=== PATIENT | female | born 2000 | race Caucasian/White ===

== ENCOUNTER 2022-03-18 15:31 | Outpatient (REF) | payer BC, SELFPAY ==
--- NOTE | ~2022-03-18 | US_ITS ---
EXAMINATION: US RETROPERITONEAL LIMITED (RENAL ONLY) CLINICAL INFORMATION: Abdominal pain.. COMPARISON: None TECHNIQUE: Multiple 2-D grayscale and color Doppler ultrasound images of the kidneys were obtained. FINDINGS: RIGHT KIDNEY: 11.8 x 6.0 x 5.5 cm (SAG x AP x TRV). No nephrolithiasis or hydronephrosis. Color Doppler showed no abnormal vascular flow. LEFT KIDNEY: 10.5 x 5.8 x 4.7 cm (SAG x AP x TRV). Small anechoic cyst in the upper pole measures 1.2 cm. An adjacent anechoic cyst measures 1.4 cm. No nephrolithiasis or hydronephrosis. Color Doppler showed no abnormal vascular flow. US/US renal BI IMPRESSION: Small left upper pole renal cysts demonstrate benign features without other significant abnormality.
--- NOTE | ~2022-03-18 | US_ITS ---
EXAMINATION: US PELVIS CLINICAL INFORMATION: Pelvic and perineal pain COMPARISON: None TECHNIQUE: Ultrasound of the pelvis is performed using both transabdominal and transvaginal transducers along with Doppler. Transvaginal imaging is performed due to inadequate visualization transabdominally. FINDINGS: Uterus: The uterus is anteverted, anteflexed and measures 9.6 x 2.9 x 4.2 cm The double wall endometrial thickness is 0.5 cm. There is intrauterine contraceptive device in correct position. The uterus is smooth in contour and has normal myometrial echogenicity. No visible fibroid. Adnexa: Both ovaries are visualized. There is normal color flow to the adnexa. There is no ovarian torsion. There is minimal fluid seen in the left adnexa. Right ovary measures 7.1 x 6.3 x 5.3 cm. There is a complex cyst with echogenic within measuring 6.3 x 4.9 x 4.4 cm. There is normal arterial and venous flow seen. Left ovary the left ovary is prominent with 8 echogenic corpus luteal cyst measuring 1.8 x 2.0 1.9 cm. There is a simple cyst measuring 2.9 x 3.1 x 3.2 cm. On Doppler exam there is whirl pool flow on Doppler exam suspicious of mild ovarian rotation but no torsion. US/US pelvic and transvaginal IMPRESSION: IUD in correct position within the endometrial canal. The uterus otherwise unremarkable. Complex cyst right ovary. Simple and corpus luteal cyst left ovary. There is mild whirlpool appearance on color Doppler of left adnexa likely twisting off ovary but no torsion. There is Minimal free fluid in the left adnexa.
[2022-03-18 17:00] LABS: Appearance Urine Clear; Color Urine Yellow; Glucose Urine UA Negative (Negative); Leukocyte Esterase Urine Negative (Negative); Nitrite Urine Negative (Negative); PH 6.5 (5.0-9.0); Specific Gravity - Urine <= 1.005 (1.005-1.025); Urine Blood Negative (Negative); Urine Ketones Negative (Negative); Urine Protein Negative (Neg-Trace)
== END 2022-03-18 15:32 | disposition home or self-care (01) ==
LOC: HO.US 15:31
PROVIDERS: PCP Internal Medicine; Visit Provider Nurse Practitioner Family
DX: R10.9 Unspecified abdominal pain (principal); R10.2 Pelvic and perineal pain
CPT/HCPCS: 76775; 76830; 76856; 81003

== ENCOUNTER 2024-06-08 09:18 | Outpatient (AMB) | payer BC, SELFPAY ==
--- NOTE | 2024-06-08 09:22 | A.OFFPC_ITS ---
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[place] Allergies No Known Allergies Allergy (Verified 06/08/24 09:22) Medication List - Last Reconciled 06/08/24 by Willard Morillo MD spironolactone 50 mg PO DAILY Tobacco use date assessed: 06/08/24 Dental Screening Dental Screen Date: 06/08/24 Did you have a dental visit in the last 12 months?: Yes Did you have a dental problem in the last 6 months where you did not have access to dental care?: No Was dental information given to patient?: Patient has dentist 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 History - The patient is a 23-year-old female pr esenting with right submammary pain. She reports experiencing significant discomfort when pressing on the lower area of her right breast, which has persisted for a couple of years. She describes it as being restricted to one side and denies any direct inciting event such as trauma or sports-related injury. She mentions the presence of a palpable bump in the area which her previous primary once speculated could be a third nipple. This bump has been linked with the onset of her pain, although the patient doubts this correlation. 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 She maintains a generally healthy diet but struggles with feelings of never achieving fullness. Her primary care history includes familial predispositions to weight struggles. - The patient self-reports astigmatism s ymptoms causing blurry vision and difficulty driving at night, which she noticed worsen in the rain and with certain lighting. She has not had eye care since approximately age 15. - A long-standing problem with constipat ion is reported, characterized by infrequent bowel movements every two days that require straining. Stools are often described as pebble-like . Previous use of dkqs-sxk-lvvefyv treatments like MiraLAX have been ineffective. She notes occasional relief following consumption of sugary coffee. But like to avoid it because of sugar content Health Maintenance - Recommended vision check due to suspec janeth astigmatism. - Discussion on possible appetite-contro l medication options considering BMI trending toward obesity. - Plan to monitor weight loss progress w ith monthly visits if certain pharmacotherapy is initiated. - Encouragement to increase water intake to improve bowel regularity. - Proposed lab tests to evaluate liver f unction and other parameters before potential weight loss medication initiation. - start Senokot S, 1 or 2 tablets every night for constipation Medications: None Social history - A [employer] residing in [place], [place], who has not engaged in smoking or marijuana use. Family History - Maternal grandfather with type 2 diabe jami - Mother has a history of prediabetes Problem List - Pain in the right submammary region, d ue to lipoma on physical exam - Weight gain with difficulty in achievi ng satiety - Astigmatism, self-reported - Constipation with infrequent bowel mov ements - Benign subcutaneous lipoma - Family history of type 2 diabetes - obesity Patient Instructions - Schedule and attend lab tests for furt her evaluation. - Book an eye doctor appointment for a trixie frdeerickon assessment. - we will talk about options for appetit e control and weight management as discussed after the labs - Monitor and record any patterns in bow el movement frequency and consistency. - we will book a telemedicine visit afte r the labs to talk about the weight loss medication phentermine. Review of Systems - General: No fever no chills - Neurological: No headaches no dizzin ess - Ear nose throat: No sore throat no hearing difficulty no ear pain - Cardiovascular: No syncope, no chest pain, no palpitations - Gastrointestinal: No nausea vomiting or diarrhea - Endocrine: No polyuria polydipsia no heat intolerance - Genitourinary: No dysuria - Skin: No new complaints Physical Exam General: Cooperative, healthy appearing, comfortable, no acute distress Orientation: Patient oriented x3 Limitations: None Head: Normal to inspection Ears: Within normal limit visually Nose: Normal external nose present Face and sinus: Normal facial exam Eyes: Appearance normal, extraocular movement intact pupils reactive Neck: Normal visual inspection and supple Respiratory: Normal respiratory effort and able to speak in complete sentences. Clear to auscultation, no stridor Cardiovascular: S1 and S2 RRR Chest: Lipoma felt at the site of discomfort that patient is pointing left lower breast, no skin changes GI: Normal to inspection. Soft to palpation and nontender Skin: Turgor normal, no acute findings Neuro: Patient oriented x3, motor sensory intact, balance intact, tandem pass Extremities: Normal to inspection [facility] Social History Housing: Apartment Patient Tobacco Use Status: Never used Tobacco e-Cigarette/Vaping Use: Never Used service: No Current occupational status: employed Cognitive needs: No Hearing needs: No Vision needs: No Questionnaire PHQ-9 Over the last 2 weeks, how often have you been bothered by any of the following problems? 1. Little interest or pleasure in doing things: not at all 2. Feeling down, depressed, or hopeless: not at all 3. Trouble falling or staying asleep, or sleeping too much: not at all 4. Feeling tired or having little energy: not at all 5. Poor appetite or overeating: not at all 6. Feeling bad about yourself - or that you are a failure or have let yourself or your family down: not at all 7. Trouble concentrating on things, such as reading the newspaper or watching television: not at all 8. Moving or speaking so slowly that other people could have noticed. Or the opposite - being so fidgety or restless that you have been moving around a lot more than usual: not at all 9. Thoughts that you would be better off or of hurting yourself in some way: not at all Total score: 0 Depression Screening Interpretation: Negative Depression Screening Done: Yes 87752 - PHQ-9 Billing: Yes Source: Developed by Drs. Andrew Garcia, Olive Mackenzie, Oswaldo Wilkinson and colleagues, with an educational neil from [employer]. Thrive Questionnaire Date Thrive assessed: 06/08/24 I am a: Patient What is your living situation today?: I have a steady place to live Within the past 12 months, did the food you bought not last and you didn't have the money to get more?: Never true Within the past 12 months, did you worry whether your food would run out before you got money to buy more?: Never true Do you have trouble paying for medicines?: No Do you have trouble getting transportation to medical appointments?: No Do you have trouble paying your heating and electricity bill?: No Do you have trouble taking care of your child, family member or friend?: No Do you have trouble with day-to-day activities such as bathing, preparing meals, shopping, managing finances, etc.?: No Are you currently unemployed and looking for a job?: No Are you interested in more education?: Yes Please select the resources that you would like help with: None Currently or been in a relationship where the following occur: No concerns reported THRIVE Score: 0 AUDIT C Alcohol Use Questionnaire (AUDIT-C) 1. How often do you have a drink containing alcohol?: Monthly or less 2. How many drinks containing alcohol do you have on a typical day when you are drinking?: 1 or 2 3. How often do you have six or more drinks on one occasion?: Never Total Score: 1 Score Reviewed/Action Taken: Yes BARON-7 AMB Questionnaire BARON-7 Date BARON - 7 assessed: 06/08/24 Feeling nervous, anxious, or on edge: 0 = Not at all Not being able to stop or control worryin = Not at all Worrying too much about different things: 0 = Not at all Trouble relaxin = Not at all Being so restless that it is hard to sit still: 0 = Not at all Becoming easily annoyed or irritable: 0 = Not at all Feeling afraid as if something awful might happen: 0 = Not at all Total BARON-7 score (0-4 normal; 5-9 mild; 10-14 moderate; 15-21 severe): 0 Source: Developed by Drs. Andrew Garcia, Olive Mackenzie, Oswaldo Wilkinson and colleagues, with an educational neil from [employer]. BARON-7 Assessment Billing BARON-7 Assessment Tool: BARON-7 Assessment 04737 Physical exam (Primary Care) Vital Signs: Last Vital Signs Pulse 53 06/08/24 09:26 BP 110/74 06/08/24 09:26 Pulse Ox 98 06/08/24 09:26 Oxygen Delivery Method Room Air 06/08/24 09:26 BMI result Body Mass Index 30.7 Tobacco/Smoking Status: Tobacco use Status Tobacco use date assessed 06/08/24 06/08/24 09:23 Patient Tobacco Use Status Never used Tobacco 06/08/24 09:23 e-Cigarette/Vaping Use Never Used 06/08/24 09:32 PHQ-9: PHQ-9 Score PHQ-9: Total score 0 06/08/24 09:59 Depression Screening Interpretation: Negative Thrive Assessment: Date of Thrive Assessment Date Thrive assessed 06/08/24 06/08/24 09:32 Currently or been in a relationship where the following occur: No concerns reported Coding Level of Care Code New Pt Level 5 (87327) Diagnoses Encounter to establish care Z76.89 Blurring of vision H53.8 Class 1 obesity due to excess calories without serious comorbidity with body mass index (BMI) of 30.0 to 30.9 in adult E66.811; E66.09; Z68.30 Body mass index: BMI 30.0-30.9 Obesity classification: adult class 1 (BMI 30 - 34.9) Serious obesity comorbidity presence: without serious comorbidity Lipoma of anterior chest wall D17.1 Constipation by delayed colonic transit K59.01 Family history of diabetes mellitus Z83.3 Family history of obesity Z83.49 Difficulty losing weight R68.89 Additional Codes BARON-7 Assessment Billing - BARON-7 Assessment Tool: BARON-7 Assessment 42646 ([id number]) PHQ-9 - 25994 - PHQ-9 Billing: Yes ([id number]) Time Spent (min) 60 Comment Most of the time awoa-ja-ypaz with the patient and coordination of care Assessment & Plan Assessment & Plan (1) Encounter to establish care: Code(s): Z76.89 - Persons encountering health services in other specified circumstances Category: Medical (2) Blurring of vision: Code(s): H53.8 - Other visual disturbances Category: Medical (3) Obesity due to excess calories: Code(s): E66.09 - Other obesity due to excess calories Category: Medical Qualifiers: Body mass index: BMI 30.0-30.9 Obesity classification: adult class 1 (BMI 30 - 34.9) Serious obesity comorbidity presence: without serious comorbidity Qualified Code(s): E66.811 - Obesity, class 1; E66.09 - Other obesity due to excess calories; Z68.30 - Body mass index [BMI] 30.0-30.9, adult (4) Lipoma of anterior chest wall: Code(s): D17.1 - Benign lipomatous neoplasm of skin and subcutaneous tissue of trunk Category: Medical (5) Constipation by delayed colonic transit: Code(s): K59.01 - Slow transit constipation Category: Medical (6) Family history of diabetes mellitus: Code(s): Z83.3 - Family history of diabetes mellitus Category: Medical (7) Family history of obesity: Code(s): Z83.49 - Family history of other endocrine, nutritional and metabolic diseases Category: Medical (8) Difficulty losing weight: Code(s): R68.89 - Other general symptoms and signs Category: Medical Plan Establish care visit Patient complains of right submammary pain, recent weight gain, blurry vision while driving at night, and infrequent bowel movements. History - The patient is a 23-year-old female presenting with right submammary pain. She reports experiencing significant discomfort when pressing on the lower area of her right breast, which has persisted for a couple of years. She describes it as being restricted to one side and denies any direct inciting event such as trauma or sports-related injury. She mentions the presence of a palpable bump in the area which her previous primary once speculated could be a third nipple. This bump has been linked with the onset of her pain, although the patient doubts this correlation. 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 She maintains a generally healthy diet but struggles with feelings of never achieving fullness. Her primary care history includes familial predispositions to weight struggles. - The patient self-reports astigmatism symptoms causing blurry vision and difficulty driving at night, which she noticed worsen in the rain and with certain lighting. She has not had eye care since approximately age 15. - A long-standing problem with constipation is reported, characterized by infrequent bowel movements every two days that require straining. Stools are often described as pebble-like . Previous use of mzbe-pzk-dewnett treatments like MiraLAX have been ineffective. She notes occasional relief following consumption of sugary coffee. But like to avoid it because of sugar content Health Maintenance - Recommended vision check due to suspected astigmatism. - Discussion on possible appetite-control medication options considering BMI trending toward obesity. - Plan to monitor weight loss progress with monthly visits if certain pharmacotherapy is initiated. - Encouragement to increase water intake to improve bowel regularity. - Proposed lab tests to evaluate liver function and other parameters before potential weight loss medication initiation. - start Senokot S, 1 or 2 tablets every night for constipation Medications: None Social history - A [employer] residing in [place], [place], who has not engaged in smoking or marijuana use. Family History - Maternal grandfather with type 2 diabetes - Mother has a history of prediabetes Problem List - Pain in the right submammary region, due to lipoma on physical exam - Weight gain with difficulty in achieving satiety - Astigmatism, self-reported - Constipation with infrequent bowel movements - Benign subcutaneous lipoma - Family history of type 2 diabetes - obesity Patient Instructions - Schedule and attend lab tests for further evaluation. - Book an eye doctor appointment for a vision assessment. - we will talk about options for appetite control and weight management as discussed after the labs - Monitor and record any patterns in bowel movement frequency and consistency. - we will book a telemedicine visit after the labs to talk about the weight loss medication phentermine. Orders: Orders Comprehensive [place]. Panel Fast Today E66.09 - Other obesity due to excess calories, H53.8 - Other visual disturbances, Z76.89 - Persons encountering health services in other specified circumstances Lipid Panel Today E66.09 - Other obesity due to excess calories, H53.8 - Other visual disturbances, Z76.89 - Persons encountering health services in other specified circumstances Complete Blood Count Auto Diff Today E66.09 - Other obesity due to excess calories, H53.8 - Other visual disturbances, Z76.89 - Persons encountering health services in other specified circumstances Vitamin D 25-OH (D2 and D3) Today E66.09 - Other obesity due to excess calories, H53.8 - Other visual disturbances, Z76.89 - Persons encountering health services in other specified circumstances TSH reflex Free T4 Today E66.09 - Other obesity due to excess calories, H53.8 - Other visual disturbances, Z76.89 - Persons encountering health services in other specified circumstances Referrals Ophthalmology Referral H53.8 - Other visual disturbances
[2024-06-08 09:26] VITALS: BP 110/74; PULSE 53; O2SAT 98; BMI 30.7
--- OUTSIDE RECORDS SUMMARY | 2024-06-08 10:13 | XMS_ITS | Data Portability ---
Author Organization [facility], [address] [place] [address] Assessment No assessment recorded. Plan of Treatment Reminders Order Date Submit Date Provider Last Modified By Organization Details Last Modified Time Details Appointments None recorded. Lab Mycobacteri um tuberculosi s stimulated gamma interferon, qual, blood 2022 023 [place] ([facility], [address], [place], [address], 08:07:05 Referral None recorded. Procedures None recorded. Surgeries None recorded. Imaging None recorded. Medication Orders None recorded. Patient TargetsNo targets recorded. Patient InstructionsNo instructions recorded. Reason for Referral None Reported. Results Created Date Observation Date Name Description Value Unit Range Abnormal Flag Note LastModifiedBy Organization Detail LastModifiedTime 10/03/19 23 10/04/2022 QUANT IFERO N-TB GOLD PLUS quantiferon incubation INCUBA TION PERFOR MED. Not Available [facility] ([facility]) [address], [place], [address], 10/05/2022 08:07:05 10/03/19 23 10/04/2022 QUANT IFERO N-TB GOLD PLUS quantiferon criteria COMMEN T Quant iFERO N-TB Gold Plus is a quali tativ e indir ect test for M tuber culos is infec tion (incl uding disea se) and is inten ded for use in conju nctio n with risk asses sment , radio graph y, and other medic al and diagn ostic evalu ation s. The Quant iFERO N-TB Gold Plus resul t is deter mined by subtr actin g the Nil value from eithe r TB antig en (Ag) value . The Mitog en tube serve s as a contr ol for the test. Not Available [facility] ([facility]) [address] [place], [address], 10/05/2022 08:07:05 10/03/19 23 10/04/2022 QUANT IFERO N-TB GOLD PLUS quantiferon TB1 Ag value 0.00 IU/mL Not Available [facility] ([facility]) [address] [place], [address], 10/05/2022 08:07:05 10/03/1910/04/2022 QUANT IFERO N-TB GOLD PLUS quantiferon TB2 Ag value 0.00 IU/mL Not Available [facility] ([facility]) [address] [place], [address], 10/05/2022 08:07:05 10/03/19 23 10/04/2022 QUANT IFERO N-TB GOLD PLUS quantiferon nil value 0.00 IU/mL Not Available [facility] ([facility]) [address] [place], [address], 10/05/2022 08:07:05 10/03/19 23 10/04/2022 QUANT IFERO N-TB GOLD PLUS quantiferon mitogen value >10.00 IU/mL Not Available [facility] ([facility]) [address] [place], [address], 10/05/2022 08:07:05 10/03/19 23 10/04/2022 QUANT IFERO N-TB GOLD PLUS quantiferon- TB gold plus NEGATI VE negati ve No respo nse to M tuber culos is antig ens detec janeth. Infec tion with M tuber culos is is unlik geovanny, but high risk indiv idual s shoul d be consi dered for addit ional testi ng (ATS/ IDSA/ CDC Clini dana Pract ice Guide lines , 2017) . The refer ence range is an Antig en minus Nil resul t of <0.35 IU/mL . Chemi lumin escen ce immun oassa y metho dolog y Not Available [facility] ([facility]) [address], [place], [address], 10/05/2022 08:07:05 Result Notes None recorded. Procedures Surgical History Date Name Laterality Status Provider Name and Address Organization Details Recorded Time 10/03/19 Venipuncture Template completed Mendy MARES - [facility] 10/02/2022 13:44:34 Imaging Results None recorded. Procedure Notes None recorded. Medical Equipment None Reported. Medications Name Sig Start Date Stop Date Status Note LastModified by Organization Details LastModified Time fluconazole 150 mg tablet TAKE 1 TABLET BY MOUTH TODAY AND REPEAT IN 3 DAYS active Not Available Not Available No t Available nystatin-tria mcinolone 100,000 unit/gram-0.1 % topical ointment APPLY TO THE AFFECTED AREA(S) BY TOPICAL ROUTE 2 TIMES PER DAY FOR 7 DAYS. active Not Available Not Available No t Available ibuprofen 600 mg tablet TAKE 1 TABLET BY MOUTH EVERY 6 HOURS NEEDED FOR PAIN FOR 7 DAYS active Not Available Not Available No t Available clindamycin 1.2 % (1 % base)-benzoyl peroxide 5 % topical gel APPLY THIN LAYER TO FACE IN THE MORNING NEEDED FOR SPOT TREATMENT active Not Available Not Available No t Available Aklief 0.005 % topical cream APPLY TO face NIGHTLY ONCE DAILY active Not Available Not Available N ot Available Vitals None Recorded Social History None recorded. Functional Status None recorded. Mental Status None recorded. Family History Nothing Reported. Medical History No medical history recorded. Gynecological HistoryNo gynecological history recorded. Obstetrics History GPAL:G 0 P 0 0 0 0 Past Encounters Encounter ID Performer Location Encounter Start Date Encounter Closed Date Diagnosis/Indication Diagnosis SNOMED-CT Code Diagnosis ICD10 Code Diagnosis [place] [id number] [place] [address] [facility] [address] [facility] NIKOLAI perry [phone] 10/02/2022 12:53:41 10/02/2022 13:56:16 History and physical examination, occupation [id number] Z02.1 Health Concerns Section Related Observation LastModified by Organization Detai ls LastModified Time None Recorded Concern Status LastModified by Organization Details LastModified Time None Recorded Advance Directives Directive None Recorded Payers Encounter Date Sequence Insurance Name Policy Number Policy Sarmiento Covered Member ID Sarmiento Member ID Guarantor Name 10/02/2022 OC-PAY AT TIME OF SERVICE 2022 Nafisa Riley OBGyn Episode No OBEpisode recorded.
== END 2024-06-08 09:58 | disposition home or self-care (01) ==
LOC: HO.HMCC 09:19
PROVIDERS: PCP Internal Medicine; Visit Provider Internal Medicine
DX: H53.8 Other visual disturbances (principal); Z76.89 Persons encountering health services in other specified circumstances; E66.811 Obesity, class 1; Z68.30 Body mass index [BMI] 30.0-30.9, adult; D17.1 Benign lipomatous neoplasm of skin and subcutaneous tissue of trunk; K59.01 Slow transit constipation; Z83.3 Family history of diabetes mellitus; Z83.49 Family history of other endocrine, nutritional and metabolic diseases; R68.89 Other general symptoms and signs

== ENCOUNTER 2024-06-08 09:18 | Outpatient (REF) | payer BC, SELFPAY ==
[2024-06-08 13:19] LABS: MANUAL DIFF FLAG NO
[2024-06-08 13:20] LABS: Basophils Percent Auto 0.4 % (0-2); Eosinophils Absolute Auto 0.1 X10*3/uL (0.0-0.4); Eosinophils Percent Auto 1.5 % (0-4); Hematocrit 41.1 % (37.0-47.0); Hemoglobin 13.7 g/dl (12.0-16.0); Imm Gran Abs Auto 0.05 X10*3/uL (0.00-0.03); Imm Gran Pct Auto 0.7 % (0.0-0.4); Lymphocytes Percent Auto 29.2 % (20-40); Mean Corpuscular HGB Conc 33.3 g/dl (31.0-35.0); Mean Corpuscular Hemoglobin 29.8 pg (27.0-33.0); Mean Corpuscular Volume 89.5 fL (80.0-98.0); Mean Platelet Volume 10.4 fL (9.4-12.3); Monocytes Absolute Auto 0.5 X10*3/uL (0.1-1.2); Monocytes Percent Auto 7.4 % (2-11); Neutrophils Absolute Auto 4.1 x10*3/uL (2.0-8.3); Neutrophils Percent Auto 60.8 % (45-73); Platelet Count 219 X10*3/uL (160-400); Red Blood Count 4.59 X10*6/uL (4.20-5.50); Red Cell Distribution Width 12.4 % (11.0-16.0); White Blood Count 6.8 X10*3/uL (4.8-10.8)
[2024-06-08 14:01] LABS: Alanine Aminotransferase 22 U/L (0-31); Albumin Level 4.4 g/dL (3.5-5.0); Alkaline Phosphatase 64 U/L (39-117); Anion Gap 10 (12-20); Aspartate Amino Transferase 24 U/L (5-31); Bilirubin Total 0.5 mg/dL (0.0-1.0); Blood Urea Nitrogen 13 mg/dL (9-16); Calcium 9.4 mg/dL (8.4-10.2); Carbon Dioxide 28 mmol/L (22-29); Chloride 107 mmol/L (96-108); Cholesterol 158 mg/dL (<200); Estimated Glomerular Filt Rate > 60; Glucose Fasting 88 mg/dL (60-99); HDL Cholesterol 59 mg/dL (>40); LDL Cholesterol Calculated 88 mg/dL (<100); Potassium 4.4 mmol/L (3.3-5.1); Sodium 141 mmol/L (135-145); Total Protein 7.4 g/dL (6.5-8.0); Triglycerides 56 mg/dL (<150)
[2024-06-08 14:06] LABS: TSH reflex Free T4 1.13 uIU/mL (0.32-4.0)
[2024-06-13 14:44] LABS: Vitamin D 25-OH, D2 <4 ng/mL; Vitamin D 25-OH, D3 29 ng/mL; Vitamin D 25-OH, Total 29 ng/mL (30-100)
== END 2024-06-08 09:19 | disposition home or self-care (01) ==
LOC: HO.HMGCLDS 09:18
PROVIDERS: PCP Internal Medicine; Visit Provider Internal Medicine
DX: Z76.89 Persons encountering health services in other specified circumstances (principal); H53.8 Other visual disturbances; E66.811 Obesity, class 1; E66.09 Other obesity due to excess calories; Z68.30 Body mass index [BMI] 30.0-30.9, adult; D17.1 Benign lipomatous neoplasm of skin and subcutaneous tissue of trunk; K59.01 Slow transit constipation; R68.89 Other general symptoms and signs; Z83.3 Family history of diabetes mellitus; Z83.49 Family history of other endocrine, nutritional and metabolic diseases
CPT/HCPCS: 36415; 80053; 80061; 82306; 84443; 85025; 96127

== ENCOUNTER 2024-06-30 08:51 | Outpatient (AMB) | payer BC, SELFPAY ==
--- OUTSIDE RECORDS SUMMARY | 2024-06-30 09:13 | XMS_ITS | Data Portability ---
Author Organization [facility], [address] Address [address] [place] [address] Assessment No assessment recorded. Plan of Treatment Reminders Order Date Submit Date Provider Last Modified By Organization Details Last Modified Time Details Appointments None recorded. Lab Mycobacteri um tuberculosi s stimulated gamma interferon, qual, blood 2022 023 [facility] ([facility], [address] [facility], [place], [address], 08:07:05 Referral None recorded. Procedures None recorded. [...] INCUBA TION PERFOR MED. Not Available [facility] ([facility]) [address] [facility], [place], [address], 10/05/2022 08:07:05 10/03/19 23 10/04/2022 QUANT IFERO [...] ol for the test. Not Available [facility] ([facility]) [address] [place], [address], 10/05/2022 08:07:05 10/03/19 23 10/04/2022 QUANT IFERO N-TB GOLD PLUS quantiferon TB1 Ag value 0.00 IU/mL Not Available [facility] ([facility]) [address] [place], [address], 10/05/2022 08:07:05 10/03/1910/04/2022 QUANT IFERO N-TB GOLD PLUS quantiferon TB2 Ag value 0.00 IU/mL Not Available [facility] ([facility]) [address] [place], [address], 10/05/2022 08:07:05 10/03/19 23 10/04/2022 QUANT IFERO N-TB GOLD PLUS quantiferon nil value 0.00 IU/mL Not Available [facility] ([facility]) [address] [place], [address], 10/05/2022 08:07:05 10/03/19 23 10/04/2022 QUANT IFERO N-TB GOLD PLUS quantiferon mitogen value >10.00 IU/mL Not Available [facility] ([facility]) [address] [place], [address], 10/05/2022 08:07:05 10/03/19 23 10/04/2022 QUANT IFERO [...] y metho dolog y Not Available [facility] ([facility]) [address], [place], [address], 10/05/2022 08:07:05 Result Notes None recorded. Procedures [...] SNOMED-CT Code Diagnosis ICD10 Code Diagnosis Note [id number] [place] [address] [facility] [address] [facility] [place] [phone] 10/02/2022 12:53:41 10/02/2022 13:56:16 History and physical examination, occupation [id number] Z02.1 Health Concerns Section Related Observation LastModified by Organization Detai ls LastModified Time None Recorded Concern Status LastModified by Organization Details LastModified Time None Recorded Advance Directives Directive None Recorded Payers Insurance Date Sequence Insurance Name Policy Number Policy Sarmiento Covered Member ID Sarmiento Member ID Guarantor Name 10/02/2022 OC-PAY AT TIME OF SERVICE 2022 Nafisa Garciac MINDYUT SUBHA Riley 10/02/2022 [facility] Nafisa Garciac [facility] Episode No OBEpisode recorded.
--- NOTE | 2024-06-30 09:15 | A.OFFPC_ITS ---
Intake Visit Reasons: Discuss Weight Allergies No Known Allergies Allergy (Verified 06/30/24 09:15) Medication List - Last Reconciled 06/30/24 by Willard Morillo MD spironolactone 50 mg PO DAILY Tobacco use date assessed: 06/30/24 Dental Screening Dental Screen Date: 06/30/24 Did you have a dental visit in the last 12 months?: Yes Did you have a dental problem in the last 6 months where you did not have access to dental care?: No Was dental information given to patient?: Patient has dentist HPI Discuss Weight HPI Details History - The patient is a 23-year-old female pr esenting with concerns related to weight management and vitamin D deficiency. - Laboratory findings indicate that the patient's complete blood count (CBC) is normal, without signs of anemia. Kidney function tests, electrolytes, and liver enzymes are within normal limits. - The laboratory results have shown a de ficiency in vitamin D levels, which necessitates supplementation. - The patient expresses interest in oral medication for weight management, mentioning knowledge of family members using injectable options. - Discussion included consideration of s tarting phentermine, side effect of med reviewed - The goal of commencing medication is t o orchestrate a weight loss of approximately five pounds over the course of one month. Problem List - Vitamin D deficiency - obesity , Patient Instructions - Start taking a vitamin D supplement as instructed by your healthcare provider. - Begin phentermine as prescribed: 15 mg , taking care not to share the prescription with others. - Attend a follow-up appointment in one month to monitor your weight loss progress. - Enhance your weight loss efforts with regular exercise and a balanced, calorie-controlled diet. Use online resources to determine your caloric needs based on activity levels. - Educate yourself on the nutritional co ntent and caloric value of different foods to help with portion control and dietary choices. - Use a kitchen scale to accurately paul ure food portions. - Report any issues with side effects or medication pick-up to your healthcare provider promptly. Review of Systems - General: No fever no chills - Neurological: No headaches no dizziness - Ear nose throat: No sore throat no hearing difficulty no ear pain - Cardiovascular: No syncope, no chest pain, no palpitations - Gastrointestinal: No nausea vomiting or diarrhea - Endocrine: No polyuria polydipsia no heat intolerance - Genitourinary: No dysuria , no blood in urine [facility] Social History Housing: Apartment Patient Tobacco Use Status: Never used Tobacco e-Cigarette/Vaping Use: Never Used service: No Current occupational status: employed Cognitive needs: No Hearing needs: No Vision needs: No Questionnaire Thrive Questionnaire Date Thrive assessed: 06/30/24 I am a: Patient What is your living situation today?: I have a steady place to live Within the past 12 months, did the food you bought not last and you didn't have the money to get more?: Never true Within the past 12 months, did you worry whether your food would run out before you got money to buy more?: Never true Do you have trouble paying for medicines?: No Do you have trouble getting transportation to medical appointments?: No Do you have trouble paying your heating and electricity bill?: No Do you have trouble taking care of your child, family member or friend?: No Do you have trouble with day-to-day activities such as bathing, preparing meals, shopping, managing finances, etc.?: No Are you currently unemployed and looking for a job?: No Are you interested in more education?: Yes Please select the resources that you would like help with: None Currently or been in a relationship where the following occur: No concerns reported THRIVE Score: 0 AUDIT C Alcohol Use Questionnaire (AUDIT-C) 1. How often do you have a drink containing alcohol?: Monthly or less 2. How many drinks containing alcohol do you have on a typical day when you are drinking?: 1 or 2 3. How often do you have six or more drinks on one occasion?: Never Total Score: 1 Score Reviewed/Action Taken: Yes BARON-7 AMB Questionnaire BARON-7 Date BARON - 7 assessed: 06/08/24 Source: Developed by Drs. Andrew Garcia, Olive Mackenzie, Oswaldo Wilkinson and colleagues, with an educational neil from [employer]. Physical exam (Primary Care) Tobacco/Smoking Status: Tobacco use Status Tobacco use date assessed 06/30/24 06/30/24 09:16 Patient Tobacco Use Status Never used Tobacco 06/30/24 09:16 e-Cigarette/Vaping Use Never Used 06/30/24 09:16 Thrive Assessment: Date of Thrive Assessment Date Thrive assessed 06/30/24 06/30/24 09:16 Currently or been in a relationship where the following occur: No concerns reported Telehealth Telehealth Telehealth Platform: [employer] Location of provider rendering services: practice address Location of patient: address on file Patient Identification confirmed using: Name, : Yes Telehealth method: voice only Patient verbally consented to treatment: Yes Patient verbally consented to billing insurance company: Yes Patient informed of any privacy concerns related to visit: Yes Minutes spent on Phone/Video with Pt.: 12 Coding Level of Care Code Tele Est Pt Level 3 (42015) Diagnoses Difficulty losing weight R68.89 Class 1 obesity due to excess calories without serious comorbidity with body mass index (BMI) of 30.0 to 30.9 in adult E66.811; E66.09; Z68.30 Obesity classification: adult class 1 (BMI 30 - 34.9) Serious obesity comorbidity presence: without serious comorbidity Body mass index: BMI 30.0-30.9 Vitamin D deficiency E55.9 Assessment & Plan Assessment & Plan (1) Difficulty losing weight: Code(s): R68.89 - Other general symptoms and signs Category: Medical (2) Obesity due to excess calories: Code(s): E66.09 - Other obesity due to excess calories Category: Medical Qualifiers: Obesity classification: adult class 1 (BMI 30 - 34.9) Serious obesity comorbidity presence: without serious comorbidity Body mass index: BMI 30.0- 30.9 Qualified Code(s): E66.811 - Obesity, class 1; E66.09 - Other obesity due to excess calories; Z68.30 - Body mass index [BMI] 30.0-30.9, adult (3) Vitamin D deficiency: Code(s): E55.9 - Vitamin D deficiency, unspecified Category: Medical Plan History - The patient is a 23-year-old female presenting with concerns related to weight management and vitamin D deficiency. - Laboratory findings indicate that the patient's complete blood count (CBC) is normal, without signs of anemia. Kidney function tests, electrolytes, and liver enzymes are within normal limits. - The laboratory results have shown a deficiency in vitamin D levels, which necessitates supplementation. - The patient expresses interest in oral medication for weight management, mentioning knowledge of family members using injectable options. - Discussion included consideration of starting phentermine, side effect of med reviewed - The goal of commencing medication is to orchestrate a weight loss of approximately five pounds over the course of one month. Problem List - Vitamin D deficiency - obesity , Patient Instructions - Start taking a vitamin D supplement as instructed by your healthcare provider. - Begin phentermine as prescribed: 15 mg, taking care not to share the prescription with others. - Attend a follow-up appointment in one month to monitor your weight loss progress. - Enhance your weight loss efforts with regular exercise and a balanced, calorie-controlled diet. Use online resources to determine your caloric needs based on activity levels. - Educate yourself on the nutritional content and caloric value of different foods to help with portion control and dietary choices. - Use a kitchen scale to accurately measure food portions. - Report any issues with side effects or medication pick-up to your healthcare provider promptly. Medications: New phentermine must administer 2 hours after breakfast 15 mg PO DAILY 30 caps 0RF
== END 2024-06-30 09:53 | disposition home or self-care (01) ==
LOC: HO.HMCC 08:51
PROVIDERS: PCP Internal Medicine; Visit Provider Internal Medicine
DX: E55.9 Vitamin D deficiency, unspecified (principal); R68.89 Other general symptoms and signs; E66.811 Obesity, class 1; Z68.30 Body mass index [BMI] 30.0-30.9, adult

== ENCOUNTER → 2024-06-30 08:51 | Outpatient (BNVA) | payer BC, SELFPAY | PROVIDERS: PCP Internal Medicine; Visit Provider Internal Medicine | DX: Z13.89 Encounter for screening for other disorder (principal) ==

== ENCOUNTER 2024-07-14 08:34 | Outpatient (AMB) | payer BC, SELFPAY ==
--- NOTE | 2024-07-14 08:40 | A.OFFPC_ITS ---
Intake Visit Reasons: Discuss Med Allergies phentermine Adverse Reaction (Verified 07/14/24 09:03) lightheadedness Medication List - Last Reconciled 07/14/24 by Willard Morillo MD phentermine 15 mg PO DAILY spironolactone 50 mg PO DAILY Tobacco use date assessed: 07/14/24 Dental Screening Dental Screen Date: 07/14/24 Did you have a dental visit in the last 12 months?: Yes Did you have a dental problem in the last 6 months where you did not have access to dental care?: No Was dental information given to patient?: Patient has dentist HPI Discuss Med HPI Details History - The patient is a 23-year-old female pr esenting with adverse reactions to Phentermine. - The patient reports experiencing dizzi ness and lightheadedness to the extent of feeling faint during physically demanding activities after starting Phentermine. - Symptoms began after initiating Phente rmine as part of a weight management regimen. - Dizziness occurs with increased activi ty, significantly impacting her ability to maintain her usual level of physical exercise. - She also reports experiencing palpitat ions likely associated with the medication. Problem List - Medication-Induced Dizziness - Palpitations - Medication-Induced Dizz iness Patient Instructions - Stop taking Phentermine immediately. - Start taking a small dose of Bupropion (Wellbutrin) in the morning as prescribed. - If the Bupropion is well tolerated aft er three or four days, begin taking Topiramate (Topamax) as prescribed. - Monitor your symptoms and contact me v ia the portal if you experience any adverse effects or other concerns. - Maintain dietary control and aim to bryn ost energy levels, enabling regular exercise. Review of Systems - General: No fever no chills - Neurological: No headaches no dizziness - Ear nose throat: No sore throat no hearing difficulty no ear pain - Cardiovascular: No syncope, no chest pain - Gastrointestinal: No nausea vomiting or diarrhea [facility] Social History Housing: Apartment Patient Tobacco Use Status: Never used Tobacco e-Cigarette/Vaping Use: Never Used service: No Current occupational status: employed Cognitive needs: No Hearing needs: No Vision needs: No Questionnaire Thrive Questionnaire Date Thrive assessed: 06/30/24 AUDIT C Alcohol Use Questionnaire (AUDIT-C) 1. How often do you have a drink containing alcohol?: Monthly or less 2. How many drinks containing alcohol do you have on a typical day when you are drinking?: 1 or 2 3. How often do you have six or more drinks on one occasion?: Never Total Score: 1 Score Reviewed/Action Taken: Yes BARON-7 AMB Questionnaire BARON-7 Date BARON - 7 assessed: 06/08/24 Source: Developed by Drs. Andrew Garcia, Olive Mackenzie, Oswaldo Wilkinson and colleagues, with an educational neil from [employer]. Physical exam (Primary Care) Tobacco/Smoking Status: Tobacco use Status Tobacco use date assessed 07/14/24 07/14/24 08:41 Patient Tobacco Use Status Never used Tobacco 07/14/24 08:41 e-Cigarette/Vaping Use Never Used 07/14/24 08:41 Thrive Assessment: Date of Thrive Assessment Date Thrive assessed 06/30/24 07/14/24 08:41 Telehealth Telehealth [facility]health [facility] Location of provider rendering services: practice address Location of patient: address on file Patient Identification confirmed using: Name, : Yes Telehealth method: voice only Patient verbally consented to treatment: Yes Patient verbally consented to billing insurance company: Yes Patient informed of any privacy concerns related to visit: Yes Minutes spent on Phone/Video with Pt.: 13 Coding Level of Care Code Tele Est Pt Level 3 (30633) Diagnoses Class 1 obesity due to excess calories without serious comorbidity with body mass index (BMI) of 30.0 to 30.9 in adult E66.811; E66.09; Z68.30 Obesity classification: adult class 1 (BMI 30 - 34.9) Serious obesity comorbidity presence: without serious comorbidity Body mass index: BMI 30.0-30.9 Assessment & Plan Assessment & Plan (1) Obesity due to excess calories: Code(s): E66.09 - Other obesity due to excess calories Category: Medical Qualifiers: Obesity classification: adult class 1 (BMI 30 - 34.9) Serious obesity comorbidity presence: without serious comorbidity Body mass index: BMI 30.0- 30.9 Qualified Code(s): E66.811 - Obesity, class 1; E66.09 - Other obesity due to excess calories; Z68.30 - Body mass index [BMI] 30.0-30.9, adult Plan History - The patient is a 23-year-old female presenting with adverse reactions to Phentermine. - The patient reports experiencing dizziness and lightheadedness to the extent of feeling faint during physically demanding activities after starting Phentermine. - Symptoms began after initiating Phentermine as part of a weight management regimen. - Dizziness occurs with increased activity, significantly impacting her ability to maintain her usual level of physical exercise. - She also reports experiencing palpitations likely associated with the medication. Problem List - Medication-Induced Dizziness - Palpitations - Medication-Induced Dizziness Patient Instructions - Stop taking Phentermine immediately. - Start taking a small dose of Bupropion (Wellbutrin) in the morning as prescribed. - If the Bupropion is well tolerated after three or four days, begin taking Topiramate (Topamax) as prescribed. - Monitor your symptoms and contact me via the portal if you experience any adverse effects or other concerns. - Maintain dietary control and aim to boost energy levels, enabling regular exercise. Medications: New bupropion HCl SR (Wellbutrin SR) 100 mg PO QAM 30 tabs 0RF topiramate (Topamax) 25 mg PO DAILY 30 tabs 0RF Discontinued phentermine must administer 2 hours after breakfast Discontinued Reason: Doctor's Order 15 mg PO DAILY 30 caps 0RF
--- OUTSIDE RECORDS SUMMARY | 2024-07-14 08:45 | XMS_ITS | Data Portability ---
Author Organization [facility], [address] Address [address] [place] [address] Assessment No assessment recorded. Plan of Treatment Reminders Order Date Submit Date Provider Last Modified By Organization Details Last Modified Time Details Appointments None recorded. Lab Mycobacteri um tuberculosi s stimulated gamma interferon, qual, blood 2022 023 [facility] ([facility], [address] [facility], [place], [address], 08:07:05 Referral None recorded. Procedures None recorded. [...] INCUBA TION PERFOR MED. Not Available [facility] ([facility]) [address] [facility], [place], [address], 10/05/2022 08:07:05 10/03/19 23 10/04/2022 QUANT IFERO [...] ol for the test. Not Available [facility] ([facility]) [address] [place], [address], 10/05/2022 08:07:05 10/03/19 23 10/04/2022 QUANT IFERO N-TB GOLD PLUS quantiferon TB1 Ag value 0.00 IU/mL Not Available [facility] ([facility]) [address] [place], [address], 10/05/2022 08:07:05 10/03/1910/04/2022 QUANT IFERO N-TB GOLD PLUS quantiferon TB2 Ag value 0.00 IU/mL Not Available [facility] ([facility]) [address] [place], [address], 10/05/2022 08:07:05 10/03/19 23 10/04/2022 QUANT IFERO N-TB GOLD PLUS quantiferon nil value 0.00 IU/mL Not Available [facility] ([facility]) [address] [place], [address], 10/05/2022 08:07:05 10/03/19 23 10/04/2022 QUANT IFERO N-TB GOLD PLUS quantiferon mitogen value >10.00 IU/mL Not Available [facility] ([facility]) [address] [place], [address], 10/05/2022 08:07:05 10/03/19 23 10/04/2022 QUANT IFERO [...] y metho dolog y Not Available [facility] ([facility]) [address], [place], [address], 10/05/2022 08:07:05 Result Notes None recorded. Procedures [...] SNOMED-CT Code Diagnosis ICD10 Code Diagnosis Note [id number] Odilia Purcell [place] [address] [facility] [address] [facility] [place] [phone] 10/02/2022 12:53:41 10/02/2022 13:56:16 History and physical examination, occupation [id number] Z02.1 Health Concerns Section Related Observation LastModified by Organization Detai ls LastModified Time None Recorded Concern Status LastModified by Organization Details LastModified Time None Recorded Advance Directives Directive None Recorded Payers Insurance Date Sequence Insurance Name Policy Number Policy Sarmiento Covered Member ID Sarmiento Member ID Guarantor Name 10/02/2022 OC-PAY AT TIME OF SERVICE 2022 Nafisa Garciac MINDYSC SUBHA Riley 10/02/2022 [facility] Nafisa Garciac O[facility]yn Episode No OBEpisode recorded.
== END 2024-07-14 10:22 | disposition home or self-care (01) ==
LOC: HO.HMCC 08:34
PROVIDERS: PCP Internal Medicine; Visit Provider Internal Medicine
DX: E66.811 Obesity, class 1 (principal); E66.09 Other obesity due to excess calories; Z68.30 Body mass index [BMI] 30.0-30.9, adult

== ENCOUNTER → 2024-07-14 08:34 | Outpatient (BNVA) | payer BC, SELFPAY | PROVIDERS: PCP Internal Medicine; Visit Provider Internal Medicine ==

== ENCOUNTER 2024-08-11 08:36 | Outpatient (AMB) | payer BC, SELFPAY ==
--- OUTSIDE RECORDS SUMMARY | 2024-08-11 08:58 | XMS_ITS | Data Portability ---
Author Organization [facility], [address] Address [address] [place] [address] Assessment No assessment recorded. Plan of Treatment Reminders Order Date Submit Date Provider Last Modified By Organization Details Last Modified Time Details Appointments None recorded. Lab Mycobacteri um tuberculosi s stimulated gamma interferon, qual, blood 2022 023 [facility] ([facility], [address] [facility], [place], [address], 08:07:05 Referral None recorded. Procedures None recorded. [...] INCUBA TION PERFOR MED. Not Available [facility] ([facility]) [address] [facility], [place], [address], 10/05/2022 08:07:05 10/03/19 23 10/04/2022 QUANT IFERO [...] ol for the test. Not Available [facility] ([facility]) [address] [place], [address], 10/05/2022 08:07:05 10/03/19 23 10/04/2022 QUANT IFERO N-TB GOLD PLUS quantiferon TB1 Ag value 0.00 IU/mL Not Available [facility] ([facility]) [address] [place], [address], 10/05/2022 08:07:05 10/03/1910/04/2022 QUANT IFERO N-TB GOLD PLUS quantiferon TB2 Ag value 0.00 IU/mL Not Available [facility] ([facility]) [address] [place], [address], 10/05/2022 08:07:05 10/03/19 23 10/04/2022 QUANT IFERO N-TB GOLD PLUS quantiferon nil value 0.00 IU/mL Not Available [facility] ([facility]) [address] [place], [address], 10/05/2022 08:07:05 10/03/19 23 10/04/2022 QUANT IFERO N-TB GOLD PLUS quantiferon mitogen value >10.00 IU/mL Not Available [facility] ([facility]) [address] [place], [address], 10/05/2022 08:07:05 10/03/19 23 10/04/2022 QUANT IFERO [...] y metho dolog y Not Available [facility] ([facility]) [address], [place], [address], 10/05/2022 08:07:05 Result Notes None recorded. Procedures [...] SNOMED-CT Code Diagnosis ICD10 Code Diagnosis Note [id number] Odilia Purcell [place] [address] [facility] [address] [facility] [place] [phone] 10/02/2022 12:53:41 10/02/2022 13:56:16 History and physical examination, occupation [id number] Z02.1 Health Concerns Section Related Observation LastModified by Organization Detai ls LastModified Time None Recorded Concern Status LastModified by Organization Details LastModified Time None Recorded Advance Directives Directive None Recorded Payers Insurance Date Sequence Insurance Name Policy Number Policy Sarmiento Covered Member ID Sarmiento Member ID Guarantor Name 10/02/2022 OC-PAY AT TIME OF SERVICE 2022 Nafisa Garciac MINDYGA SUBHA Riley 10/02/2022 [facility] Nafisa Garciac [facility] Episode No OBEpisode recorded.
--- NOTE | 2024-08-11 09:35 | MHC.PC.OV ---
Vital Signs 08/11/24 09:39 Height 5 ft 7 in Weight 185 lb BMI 29.0 Intake Visit Reasons: med refill Allergies phentermine Adverse Reaction (Verified 07/14/24 09:03) lightheadedness Medication List - Last Reconciled 08/11/24 by Willard Morillo MD bupropion HCl SR (Wellbutrin SR) 100 mg PO QAM spironolactone 50 mg PO DAILY topiramate (Topamax) 25 mg PO DAILY Tobacco use date assessed: 07/14/24 Dental Screening Dental Screen Date: 07/14/24 HPI med refill HPI Details History - The patient is a 23-year-old female presenting with weight management and medication tolerance. - The patient started bupropion and Topamax approximately one month ago for weight management. - She reports no side effects from either medication. - Despite medication, she does not perceive a significant appetite suppressant effect. - The patient has been engaging in a rigorous exercise routine as part of a summer workout program. - Her weight has decreased from 196 lbs with a BMI of 30.7 to 185 lbs with a BMI of 29.0. Problem List - Weight management - Medication tolerance Patient Instructions - Continue with the current exercise routine as it is contributing to weight loss. 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 - Consider increasing the dose of bupropion and Topamax if well-tolerated and no side effects are experienced. - Follow up in three months to assess progress and medication effectiveness. Review of Systems - General: No fever no chills - Neurological: No headaches no dizziness - Ear nose throat: No sore throat no hearing difficulty no ear pain - Cardiovascular: No syncope, no chest pain, no palpitations - Gastrointestinal: No nausea vomiting or diarrhea [facility] Social History Housing: Apartment Patient Tobacco Use Status: Never used Tobacco e-Cigarette/Vaping Use: Never Used service: No Current occupational status: employed Cognitive needs: No Hearing needs: No Vision needs: No Questionnaire Thrive Questionnaire Date Thrive assessed: 06/30/24 BARON-7 AMB Questionnaire BARON-7 Date BARON - 7 assessed: 06/08/24 Source: Developed by Drs. Andrew Garcia, Olive B.Oswaldo Baumann and colleagues, with an educational neil from [employer]. Physical exam (Primary Care) BMI result Body Mass Index 29.0 Tobacco/Smoking Status: Tobacco use Status Tobacco use date assessed 07/14/24 08/11/24 09:35 Patient Tobacco Use Status Never used Tobacco 08/11/24 09:35 e-Cigarette/Vaping Use Never Used 08/11/24 09:35 Thrive Assessment: Date of Thrive Assessment Date Thrive assessed 06/30/24 08/11/24 09:35 Telehealth Telehealth Telehealth Platform: [employer] Location of provider rendering services: practice address Location of patient: address on file Patient Identification confirmed using: Name, : Yes Telehealth method: video Patient verbally consented to treatment: Yes Patient verbally consented to billing insurance company: Yes Patient informed of any privacy concerns related to visit: Yes Minutes spent on Phone/Video with Pt.: 13 Coding Level of Care Code Tele Est Pt Level 3 (04057) Diagnoses Class 1 obesity due to excess calories without serious comorbidity with body mass index (BMI) of 30.0 to 30.9 in adult E66.811; E66.09; Z68.30 Obesity classification: adult class 1 (BMI 30 - 34.9) Serious obesity comorbidity presence: without serious comorbidity Body mass index: BMI 30.0-30.9 Assessment & Plan Assessment & Plan (1) Obesity due to excess calories: Code(s): E66.09 - Other obesity due to excess calories Category: Medical Qualifiers: Obesity classification: adult class 1 (BMI 30 - 34.9) Serious obesity comorbidity presence: without serious comorbidity Body mass index: BMI 30.0-30.9 Qualified Code(s): E66.811 - Obesity, class 1; E66.09 - Other obesity due to excess calories; Z68.30 - Body mass index [BMI] 30.0-30.9, adult Plan History - The patient is a 23-year-old female presenting with weight management and medication tolerance. - The patient started bupropion and Topamax approximately one month ago for weight management. - She reports no side effects from either medication. - Despite medication, she does not perceive a significant appetite suppressant effect. - The patient has been engaging in a rigorous exercise routine as part of a summer workout program. - Her weight has decreased from 196 lbs with a BMI of 30.7 to 185 lbs with a BMI of 29.0. Problem List - Weight management - Medication tolerance Patient Instructions - Continue with the current exercise routine as it is contributing to weight loss. 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 - Consider increasing the dose of bupropion and Topamax if well-tolerated and no side effects are experienced. - Follow up in three months to assess progress and medication effectiveness. Medications: Changed From bupropion HCl SR (Wellbutrin SR) 100 mg PO QAM 90 tabs 0RF To bupropion HCl SR 200 mg PO QAM 90 tabs 0RF From topiramate (Topamax) 25 mg PO DAILY 30 tabs 0RF To topiramate 50 mg PO ONCE 90 tabs 0RF
[2024-08-11 09:39] VITALS: BMI 29.0
== END 2024-08-11 09:43 | disposition home or self-care (01) ==
LOC: HO.HMCC 08:36
PROVIDERS: PCP Internal Medicine; Visit Provider Internal Medicine
DX: E66.811 Obesity, class 1 (principal); E66.09 Other obesity due to excess calories; Z68.30 Body mass index [BMI] 30.0-30.9, adult

== ENCOUNTER → 2024-08-11 08:36 | Outpatient (BNVA) | payer BC, SELFPAY | PROVIDERS: PCP Internal Medicine; Visit Provider Internal Medicine ==

== ENCOUNTER 2024-11-08 13:12 | Outpatient (AMB) | payer BC, SELFPAY ==
[2024-11-08 13:17] VITALS: BP 118/72; PULSE 61; O2SAT 98; BMI 29.1
--- NOTE | 2024-11-08 13:17 | MHC.PC.OV ---
Vital Signs 11/08/24 13:17 Height 5 ft 7 in Weight 186 lb BMI 29.1 BP 118/72 Blood Pressure Location Rt brachial Position Sitting Pulse 61 Pulse Source Pulse Oximeter Pulse Oximetry (%) 98 Intake Visit Reasons: 3 mon weight loss follow up Allergies phentermine Adverse Reaction (Verified 11/08/24 13:17) lightheadedness Medication List - Last Reconciled 11/08/24 by Willard Morillo MD spironolactone 50 mg PO DAILY Tobacco use date assessed: 07/14/24 Dental Screening Dental Screen Date: 07/14/24 HPI 3 mon weight loss follow up HPI Details History of Present Illness The patient is a 23-year-old female presenting with concerns regarding weight management and potential PCOS. Weight Management: - Reports maintaining current weight of 186 pounds with height 5'7 . - Engages in significant physical activity, playing soccer regularly. - Describes daily caloric intake and expresses confusion about non-weight loss despite perceived low calorie consumption. - Currently conducting a food intake log as advised by a manager presentation. - Attempts at dietary calorie reduction discussed to facilitate weight loss. Possible Polycystic Ovary Syndrome (PCOS): - Patient had blood work which returned normal; ultrasound scheduled in two weeks due to an ovarian cyst. - Discussed symptoms and diagnostic tests with OB to rule out PCOS. Medical History: - Acne, managed with spironolactone. - Concern regarding possible Polycystic Ovary Syndrome (PCOS). Medications: - Spironolactone, previously used for acne. Social History: - Currently an active participant in soccer, performing regular and intense physical activity. - Eating habits include eggs, avocado, salads, hummus, vegetables, chicken, and occasional rice. - Engages in exercise daily. - Desires to manage weight effectively with dietary and exercise adjustments. Family History: - Family history of diabetes noted. Problem List - Possible Polycystic Ovary Syndrome (PCOS) - Acne - over weight Patient Instructions - Track food intake regularly as recommended by the manager presentation. - Continue current level of physical activity. - Manage calorie intake to promote weight loss, considering specific guidance on food types to consume. - Consider adjusting dose of spironolactone to half a tab as discussed Review of Systems - General: No fever no chills - Neurological: No headaches no dizziness - Ear nose throat: No sore throat no hearing difficulty no ear pain - Cardiovascular: No syncope, no chest pain, no palpitations - Gastrointestinal: No nausea vomiting or diarrhea - Endocrine: No polyuria polydipsia no heat intolerance - Genitourinary: No dysuria , no blood in urine Physical Exam - General: No acute distress - HEENT: No acute findings - Neck: Supple - Respiratory system: Able to talk in full sentences, no audible wheeze - Cardiovascular: S1-S2 regular in rate and rhythm - Gastrointestinal: No pain - Extremities: No new findings - 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 1. Little interest or pleasure in doing things: not at all 2. Feeling down, depressed, or hopeless: not at all 3. Trouble falling or staying asleep, or sleeping too much: not at all 4. Feeling tired or having little energy: not at all 5. Poor appetite or overeating: not at all 6. Feeling bad about yourself - or that you are a failure or have let yourself or your family down: not at all 7. Trouble concentrating on things, such as reading the newspaper or watching television: not at all 8. Moving or speaking so slowly that other people could have noticed. Or the opposite - being so fidgety or restless that you have been moving around a lot more than usual: not at all 9. Thoughts that you would be better off or of hurting yourself in some way: not at all Total score: 0 Depression Screening Interpretation: Negative Depression Screening Done: Yes [id number] - PHQ-9 Billing: Yes Source: Developed by Drs. Andrew Garcia, Olive Mackenzie, Oswaldo Wilkinson and colleagues, with an educational neil from [email or web address]. Thrive Questionnaire Date Thrive assessed: 06/05/24 I am a: Patient What is your living situation today?: I have a steady place to live Within the past 12 months, did the food you bought not last and you didn't have the money to get more?: Never true Within the past 12 months, did you worry whether your food would run out before you got money to buy more?: Never true Do you have trouble paying for medicines?: No Do you have trouble getting transportation to medical appointments?: No Do you have trouble paying your heating and electricity bill?: No Do you have trouble taking care of your child, family member or friend?: No Do you have trouble with day-to-day activities such as bathing, preparing meals, shopping, managing finances, etc.?: No Are you currently unemployed and looking for a job?: No Are you interested in more education?: Yes Please select the resources that you would like help with: None Currently or been in a relationship where the following occur: No concerns reported THRIVE Score: 0 AUDIT C Alcohol Use Questionnaire (AUDIT-C) 1. How often do you have a drink containing alcohol?: Monthly or less 2. How many drinks containing alcohol do you have on a typical day when you are drinking?: 1 or 2 3. How often do you have six or more drinks on one occasion?: Never Total Score: 1 BARON-7 AMB Questionnaire BARON-7 Date BARON - 7 assessed: 06/08/24 Feeling nervous, anxious, or on edge: 0 = Not at all Not being able to stop or control worryin = Not at all Worrying too much about different things: 0 = Not at all Trouble relaxin = Not at all Being so restless that it is hard to sit still: 0 = Not at all Becoming easily annoyed or irritable: 0 = Not at all Feeling afraid as if something awful might happen: 0 = Not at all Total BARON-7 score (0-4 normal; 5-9 mild; 10-14 moderate; 15-21 severe): 0 Source: Developed by Drs. Andrew Garcia, Olive Mackenzie, Oswaldo Wilkinson and colleagues, with an educational neil from [email or web address]. BARON-7 Assessment Billing BARON-7 Assessment Tool: BARON-7 Assessment 65193 Physical exam (Primary Care) Vital Signs: Last Vital Signs Pulse 61 11/08/24 13:17 BP 118/72 11/08/24 13:17 Pulse Ox 98 11/08/24 13:17 BMI result Body Mass Index 29.1 Tobacco/Smoking Status: Tobacco use Status Tobacco use date assessed 07/14/24 11/08/24 13:19 Patient Tobacco Use Status Never used Tobacco 11/08/24 13:19 e-Cigarette/Vaping Use Never Used 11/08/24 13:19 PHQ-9: PHQ-9 Score PHQ-9: Total score 0 11/08/24 13:39 Depression Screening Interpretation: Negative Thrive Assessment: Date of Thrive Assessment Date Thrive assessed 06/05/24 11/08/24 13:19 Currently or been in a relationship where the following occur: No concerns reported Coding Level of Care Code Est Pt Level 3 (43867) Diagnoses Other acne L70.8 Acne type: other acne Over weight E66.3 Family history of diabetes mellitus Z83.3 Additional Codes PHQ-9 - 85889 - PHQ-9 Billing: Yes ([id number]) BARON-7 Assessment Billing - BARON-7 Assessment Tool: BARON-7 Assessment [id number] ([id number]) Assessment & Plan Assessment & Plan (1) Acne: Code(s): L70.9 - Acne, unspecified Category: Medical Qualifiers: Acne type: other acne Qualified Code(s): L70.8 - Other acne (2) Over weight: Code(s): E66.3 - Overweight Category: Medical (3) Family history of diabetes mellitus: Code(s): Z83.3 - Family history of diabetes mellitus Category: Medical Plan History of Present Illness The patient is a 23-year-old female presenting with concerns regarding weight management and potential PCOS. Weight Management: - Reports maintaining current weight of 186 pounds with height 5'7 . - Engages in significant physical activity, playing soccer regularly. - Describes daily caloric intake and expresses confusion about non-weight loss despite perceived low calorie consumption. - Currently conducting a food intake log as advised by a manager presentation. - Attempts at dietary calorie reduction discussed to facilitate weight loss. Possible Polycystic Ovary Syndrome (PCOS): - Patient had blood work which returned normal; ultrasound scheduled in two weeks due to an ovarian cyst. - Discussed symptoms and diagnostic tests with OB to rule out PCOS. Medical History: - Acne, managed with spironolactone. - Concern regarding possible Polycystic Ovary Syndrome (PCOS). Medications: - Spironolactone, previously used for acne. Social History: - Currently an active participant in soccer, performing regular and intense physical activity. - Eating habits include eggs, avocado, salads, hummus, vegetables, chicken, and occasional rice. - Engages in exercise daily. - Desires to manage weight effectively with dietary and exercise adjustments. Family History: - Family history of diabetes noted. Problem List - Possible Polycystic Ovary Syndrome (PCOS) - Acne - over weight Patient Instructions - Track food intake regularly as recommended by the manager presentation. - Continue current level of physical activity. - Manage calorie intake to promote weight loss, considering specific guidance on food types to consume. - Consider adjusting dose of spironolactone to half a tab as discussed Orders: Orders Insulin Today E66.09 - Other obesity due to excess calories, E66.811 - Obesity, class 1, Z68.30 - Body mass index [BMI] 30.0-30.9, adult, Z83.3 - Family history of diabetes mellitus
== END 2024-11-08 13:57 | disposition home or self-care (01) ==
LOC: HO.HMCC 13:13
PROVIDERS: PCP Internal Medicine; Visit Provider Internal Medicine
DX: L70.8 Other acne (principal); E66.3 Overweight; Z83.3 Family history of diabetes mellitus

== ENCOUNTER → 2024-11-08 13:12 | Outpatient (BNVA) | payer BC, SELFPAY | PROVIDERS: PCP Internal Medicine; Visit Provider Internal Medicine | DX: E66.3 Overweight (principal); L70.8 Other acne; E66.09 Other obesity due to excess calories; E66.811 Obesity, class 1; Z68.30 Body mass index [BMI] 30.0-30.9, adult; Z83.3 Family history of diabetes mellitus | CPT/HCPCS: 96127 ==